=== PATIENT | male | born 1980 | race Caucasian/White ===

== ENCOUNTER 2016-09-24 21:29 | Emergency (ER) | payer OTHER ==
[~2016-09-24] VITALS: Ht 175.3 cm; Wt 140.0 kg
[2016-09-24 21:41] VITALS: BP 140/85; RESP 24; O2SAT 98
--- NOTE | 2016-09-24 22:23 | ED.REPORT ---
HPI-Sore Throat ONLY HPI/PE done Sep 24, 2016 ED Provider: Celestino Huff MD Pt is a 36 year old male presenting to the ED complaining of throat pain and swelling onset today. Associated symptoms include trouble swallowing. He denies any other symptoms at this time. Pt was seen at today and had a negative strep test. Nursing Notes Stated Complaint: SORE THROAT, SWELLING Chief Complaint: ENT & Mouth Nursing Notes Reviewed: Yes Allergies: Coded Allergies: morphine (Verified Allergy, Severe, rage, 09/24/16) Scheduled Amoxicillin/Clav K 875-125 mg (Amoxicillin/Clav K 875-125 mg) 875 Mg Tab 1 TABLET PO BID Scheduled PRN Ondansetron ODT (Ondansetron ODT) 4 Mg Tab.rapdis 4 MG PO QID PRN PRN For Nausea Prednisone (PredniSONE) 20 Mg Tablet 20 MG PO TID PRN PRN as directed General Time Seen by MD: 22:21 Chief Complaint Sore throat Hx Obtained From: Patient Arrived By: Walk-in Onset Occurred: 9 - 12 hours ago Symptom Duration: Since onset Quality: Painful Severity: Current: Moderate Severity: Maximum: Moderate Recent Healthcare: No recent hospitalization, Recent doctor visit Similar Sx Previous: No Past Medical History Past Medical History denies Past Surgical History denies Smoking History Never Smoker Social History Alcohol Use: Denies alcohol use Drug Use: THC Ambulatory Status Independent Review of Systems Constitutional: Denies: Fever Ears / Nose / Throat: Reports: Sore throat, Throat swelling Respiratory: Denies: Shortness of breath GI: Denies: Vomiting Complete sys rev & neg: except as marked. Physical Exam Initial Vital Signs Vital Signs (First) Date Time Temp Pulse Resp B/P Pulse Ox O2 Delivery O2 Flow Rate FiO2 09/24/16 21:41 36.6 118 24 140/85 98 Room Air Initial VS: Reviewed, Vital signs abnormal Head / Eyes: Atraumatic, Normocephalic, PERRL Respiratory: Breath sounds normal, Clear to auscultation, No respiratory distress Cardiovascular: Regular rate & rhythm, Heart sounds normal, Intact distal pulses Abdomen / GI: Soft, Non-tender, No guarding, No rebound, No distention Extremities: Vascular intact, Neuro intact, No swelling, No tenderness Skin: Warm, Dry, No cyanosis Neurologic: Alert, Oriented, Nonfocal Psychiatric: Mood/affect normal, Behavior normal, Normal thought content General/Constitutional: Awake, Alert, No acute distress ENT: Atraumatic, Airway patent Left peritonsillar abscess. Tonsils 3+ right, 4+ on left. Erythema with no drainage. Pt is able to swallow. Lips dry. Little swelling of the uvula. Neck: Atraumatic, Supple, No meningismus, Full range of motion, No adenopathy Interpretation & Diagnostics Lab Results Interpretation Result Diagram: 09/24/16223909/24/162239 Test 09/24/16 22:40 White Blood Count 8.7th/mm3 (3.8-10.1) Red Blood Count 4.75mil/mm3 (4.40-5.80) Hemoglobin 14.9g/dL (13.8-17.2) Hematocrit 44.0% (41.0-50.0) Mean Corpuscular Volume 92.6fL (81-100) Mean Corpuscular Hemoglobin 31.4pg (27.0-35.0) Mean Corpuscular Hemoglobin Concent 33.9% (32.0-37.0) Red Cell Distribution Width 12.8% (12.3-15.4) Platelet Count 261bil/L (150-400) Neutrophils (%) (Auto) 71.9% (40-74) Lymphocytes (%) (Auto) 18.0% (14-46) Monocytes (%) (Auto) 9.1% (4-12) Eosinophils (%) (Auto) 0.5% (0-5) Basophils (%) (Auto) 0.3% (0-3) Sodium Level 137mEq/L (134-144) Potassium Level 3.5mEq/L (3.5-5.2) Chloride Level 101mEq/L (97-108) Carbon Dioxide Level 25mmol/L (18-29) Blood Urea Nitrogen 13mg/dL (6-20) Creatinine 0.63mg/dL (0.76-1.27) Estimat Glomerular Filtration Rate 155mL/min (>59) Glucose Level 115mg/dL (60-99) Lactic Acid Level 1.7mmol/L (0.4-2.0) Calcium Level 8.9mg/dL (8.5-10.1) Magnesium Level 1.6mg/dL (1.6-2.6) Total Bilirubin 0.2mg/dL (0.0-1.2) Aspartate Amino Transf (AST/SGOT) 18U/L (0-50) Alanine Aminotransferase (ALT/SGPT) 32U/L (0-44) Alkaline Phosphatase 74U/L (25-150) Total Protein 7.4g/dL (6.4-8.4) Albumin 3.9g/dL (3.4-5.0) Lab values outside NL range: no clinical significance. Re-Eval/Medical Decision Med Decision/Clinical Course 36-year-old male with left peritonsillar abscess. He has difficulty swallowing but no airway concerns. He was given IV hydration, IV Solu-Medrol, IV Unasyn, and IV pain medication. He improved fairly dramatically, although he is still having some trouble swallowing. He is being discharged home with pain medicine , nausea medicine, and oral antibiotics. He will return here [facility] if he has increasing difficulty with swallowing or any problems with breathing. Dr. Cj Genao was consulted by phone. He approves of this management plan and will see the patient in the office this afternoon for recheck and possible drainage if needed.. Re-Evaluation/Progress #1: Time of Eval: 23:27 Patient Status: Condition improved Re-Evaluation/Progress Note: Pt pain is slightly improved to a 7/10, but pt is still having difficulty swallowing. Re-Evaluation/Progress #2: Time of Eval: 01:33 Patient Status: Condition improved Re-Evaluation/Progress Note: Pt is looking much better, symptoms greatly improved. Discussed plan for discharge. Pt understands and agrees with plan. 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 This causes swelling and difficulty swallowing. The medications we have given in the emergency room should shrink the swelling dramatically over the first 12-24 hours. Drink plenty of fluids. Oxycodone/acetaminophen 5/325, one or 2 tablets every 4-6 hours as needed for severe pain, #10 dispensed. Use this medication sparingly. Ondansetron (Zofran) 4 mg dissolved orally as needed for nausea and vomiting, #4 dispensed and #10 prescribed. Augmentin 875 mg, one pill twice daily for 10 days, #20 prescribed. Prednisone 20 mg by mouth 3 times a day for 5 days then reduce by one half tablet every day until gone, #[address] Cj Genao's office this morning for an appointment this afternoon. Return to the emergency room if he gets significant worsening. Contact me at [phone] between the hours of 9 PM and 6 AM for the next couple nights if you have any questions or concerns. Referrals: OTHER,PHYSICIAN (PCP) Cj Genao MD Attestation Portions of this note were transcribed by Leona Bains. I, Dr. Huff personally performed the history, physical exam and medical decision-making; I reviewed and confirmed the accuracy of the information in the transcribed note. Signed by: Pelon Turcios, 09/25/16 and 0150. copies to: Cj Genao MD, Howard L MD Sep 24, 2016 22:23 LEONA BAINS Sep 24, 2016 22:30
[2016-09-24] MEDS ORDERED: 0.9% Sodium Chloride 1,000 ML IV ONE (22:27)
[2016-09-24] MEDS ORDERED: HYDROmorphone 0.5 mg/0.5 mL iSecure Syringe IVPUSH PRN (22:30)
[2016-09-24] MEDS ORDERED: Piperacillin-Tazo 3.375 Gm Inj 3.375 GM in Dextrose 5% Minibag Plus 50 ML IV ONE (22:30)
[2016-09-24] MEDS ORDERED: Ondansetron 2 mg/mL 2 mL Inj IV PRN (22:30)
[2016-09-24] MEDS ORDERED: MethylprednisoLONE Sodium Succinate 62.5 mg/mL 2 mL Inj IVPUSH ONE (22:30)
[2016-09-24 22:50] LABS: BASOPHILS % (AUTO) 0.3 % (0-3); EOSINOPHILS % (AUTO) 0.5 % (0-5); MONOCYTES % (AUTO) 9.1 % (4-12); Mean Corpuscular Hemoglobin 31.4 pg (27.0-35.0); Mean Corpuscular Volume 92.6 fL (81-100); NEUTROPHILS % (AUTO) 71.9 % (40-74); Platelet Count 261 bil/L (150-400)
[2016-09-24 23:11] LABS: Magnesium 1.6 mg/dL (1.6-2.6)
[2016-09-25] MEDS ORDERED: _oxyCODONE/APAP 5-325 mg Tablet PO PRN (01:40)
[2016-09-25] MEDS ORDERED: _Ondansetron ODT 4 mg Tablet PO PRN (01:40)
[2016-09-25] MEDS ORDERED: ONDA4TAB12 PO (01:47)
[2016-09-25] MEDS ORDERED: AGM875T PO (01:47)
[2016-09-25] MEDS ORDERED: PRE20 PO (01:47)
[2016-09-25 02:27] VITALS: BP 138/89; PULSE 113; RESP 16; O2SAT 95
== END 2016-09-25 02:08 | disposition home or self-care (01) ==
LOC: SED 21:29
DX: J36 Peritonsillar abscess (principal); Z88.5 Allergy status to narcotic agent
CPT/HCPCS: 36415; 80053; 83605; 83735; 85025; 87040; 96365; 96375; 99285; J1170; J1885; J2405; J2543; J2930; J7030

== ENCOUNTER 2016-09-27 02:03 | Emergency (ER) | payer OTHER ==
[~2016-09-27] VITALS: Ht 175.3 cm; Wt 140.0 kg
[~2016-09-27 02:03] MED LIST: AGM875T PO; ONDA4TAB12 PO; PRE20 PO
[2016-09-27 02:08] VITALS: BP 146/74; RESP 13; O2SAT 96
--- NOTE | 2016-09-27 03:11 | ED.REPORT ---
HPI-Sore Throat ONLY HPI/PE done Sep 27, 2016 ED Provider: Celestino Huff MD Patient is a 36 year old male presenting to the ED c/o possible peritonsillar abscess. The pt was seen in the ED on 09/24/2016 due to a possible left peritonsillar abscess. He was given IV antibiotics and steroids and discharged on PO antibiotics. He followed up with ENT without definitive diagnosis. Since that point, the swelling of his throat and tongue has worsened and it is now becoming more difficult to breathe. Nursing Notes Stated Complaint: THROAT SWELLING TONSIL ABSCESS Chief Complaint: ENT & Mouth Nursing Notes Reviewed: Yes Allergies: Coded Allergies: morphine (Verified Allergy, Severe, rage, 09/27/16) Scheduled Amoxicillin/Clav K 875-125 mg (Amoxicillin/Clav K 875-125 mg) 875 Mg Tab 1 TABLET PO BID Scheduled PRN Ondansetron ODT (Ondansetron ODT) 4 Mg Tab.rapdis 4 MG PO QID PRN PRN For Nausea Prednisone (PredniSONE) 20 Mg Tablet 20 MG PO TID PRN PRN as directed General Time Seen by MD: 03:07 Chief Complaint Other (possible peritonsillar abscess ) Hx Obtained From: Patient Arrived By: Walk-in Onset Occurred: 3 days ago Symptom Duration: Since onset Recent Healthcare: No recent hospitalization, Recent doctor visit Similar Sx Previous: Yes Past Medical History Past Medical History none reported Past Surgical History right minicscus bilateral hernia repair Smoking History Never Smoker Social History Alcohol Use: Denies alcohol use Drug Use: THC Ambulatory Status Independent Review of Systems Review of Systems Note: throat, tongue and tonsillar swelling difficulty breathing GI: Denies: Abdominal pain, Diarrhea, Nausea, Vomiting Skin: Denies Rash Complete sys rev & neg: except as marked. Physical Exam Initial Vital Signs Vital Signs (First) Date Time Temp Pulse Resp B/P Pulse Ox O2 Delivery O2 Flow Rate FiO2 09/27/16 02:08 37.4 117 13 146/74 96 Room Air Initial VS: Reviewed, Vital signs normal General/Constitutional: Awake, Alert, No acute distress ENT: Atraumatic, Airway patent, Mucous membranes moist swelling of the uvula tonsillar erythema with patchy exudate ulceration, 4+ and touching in the middle mild tongue swelling Neck: Atraumatic, Supple, Full range of motion Head / Eyes: Atraumatic, Normocephalic, PERRL, EOMI Respiratory / Chest: Atraumatic, Breath sounds NL, Breath sounds = bilat, No respiratory distress Cardiovascular: Heart rate NL, Regular rhythm, Heart sounds NL Abdomen: Atraumatic, Soft, Non-tender Skin: Atraumatic, Color NL, No rash, Warm, Dry Neurologic: Oriented X3, Speech NL, No motor deficits, No sensory deficits Back: Atraumatic, Full range of motion Upper Extremity / MS: Atraumatic, Full range of motion Lower Extremity / Pelvis / MS: Atraumatic, Full range of motion Psychiatric: Affect NL, Mood NL Interpretation & Diagnostics Interpretation & Diagnostics: CT Neck with contrast: IMPRESSION: Tonsillitis/adenitis Lab Results Interpretation Result Diagram: 09/27/16 0245 09/27/16 0245 Test 09/27/16 02:45 09/27/16 03:20 White Blood Count 7.5th/mm3 (3.8-10.1) Red Blood Count 4.62mil/mm3 (4.40-5.80) Hemoglobin 14.5g/dL (13.8-17.2) Hematocrit 43.0% (41.0-50.0) Mean Corpuscular Volume 93.1fL (81-100) Mean Corpuscular Hemoglobin 31.4pg (27.0-35.0) Mean Corpuscular Hemoglobin Concent 33.7% (32.0-37.0) Red Cell Distribution Width 12.8% (12.3-15.4) Platelet Count 281bil/L (150-400) Neutrophils (%) (Auto) 65.8% (40-74) Lymphocytes (%) (Auto) 20.3% (14-46) Monocytes (%) (Auto) 12.5% (4-12) Eosinophils (%) (Auto) 0.3% (0-5) Basophils (%) (Auto) 0.4% (0-3) Sodium Level 139mEq/L (134-144) Potassium Level 3.8mEq/L (3.5-5.2) Chloride Level 100mEq/L (97-108) Carbon Dioxide Level 27mmol/L (18-29) Blood Urea Nitrogen 15mg/dL (6-20) Creatinine 0.59mg/dL (0.76-1.27) Estimat Glomerular Filtration Rate 167mL/min (>59) Glucose Level 103mg/dL (60-99) Calcium Level 8.6mg/dL (8.5-10.1) Magnesium Level 1.8mg/dL (1.6-2.6) Total Bilirubin 0.3mg/dL (0.0-1.2) Aspartate Amino Transf (AST/SGOT) 28U/L (0-50) Alanine Aminotransferase (ALT/SGPT) 55U/L (0-44) Alkaline Phosphatase 71U/L (25-150) Total Protein 7.1g/dL (6.4-8.4) Albumin 3.5g/dL (3.4-5.0) Hold Urine Received (Received) Re-Eval/Medical Decision Med Decision/Clinical Course 36-year-old male with peritonsillar abscess treated in the emergency room 2 days ago and then followed up by ENT. He now presents with increased swelling. CT scan shows no evidence of abscess at this time, only soft tissue swelling from tonsillopharyngitis. He has 3-4+ tonsils but his airway is not obstructed. I suspect that sleeping and mouth breathing causes him increased symptomatology. He was hydrated with 2 L of saline. He will continue his present medications and get a cool mist vaporizer. Follow up as planned with ENT. Source of Hx: Old records Re-Evaluation/Progress #1: Time of Eval: 04:46 Re-Evaluation/Progress Note: Rechecked patient. Discussed with patient results of CT scan and plan. Patient understands plan. All questions answered at this time. Re-Evaluation/Progress #2: Time of Eval: 06:09 Re-Evaluation/Progress Note: Rechecked patient. Discussed with patient results and plan to discharge. Patient agrees and understands the plan. All questions addressed at this time. Counseled Regarding: Diagnosis, Lab results, Need for follow-up, When/why to return to ED Discharge & Departure Primary Impression: Tonsillopharyngitis Disposition: Home Discharge Condition All VS Reviewed: Yes Condition: Stable Patient Instructions: Tonsillitis (ED) Additional Instructions: No definite abscess seen on CT scan. There is soft tissue swelling from nasal pharyngitis. Continue present medications. Follow up in the emergency room or with ENT as needed. Contact me at [phone] between the hours of 9 PM and 6 AM for the next couple of nights if you have any questions or concerns. Referrals: OTHER,PHYSICIAN (PCP) Scribe Attestation Portions of this note were transcribed by Margarita Perales & Viv Olvera. I, Dr. Huff personally performed the history, physical exam and medical decision-making; I reviewed and confirmed the accuracy of the information in the transcribed note. Signed by: Pelon Souza, 09/27/2016 and 0615. Celestino Huff MD Sep 27, 2016 03:11 Margarita Perales Sep 27, 2016 03:20 VIV OLVERA Sep 27, 2016 05:52
[2016-09-27] MEDS ORDERED: 0.9% Sodium Chloride 1,000 ML IV ONE ×2 (03:18→05:10)
[2016-09-27] MEDS ORDERED: Ondansetron 2 mg/mL 2 mL Inj IV PRN (03:20)
[2016-09-27 03:24] LABS: BASOPHILS % (AUTO) 0.4 % (0-3); EOSINOPHILS % (AUTO) 0.3 % (0-5); MONOCYTES % (AUTO) 12.5 % (4-12); Mean Corpuscular Hemoglobin 31.4 pg (27.0-35.0); Mean Corpuscular Volume 93.1 fL (81-100); NEUTROPHILS % (AUTO) 65.8 % (40-74); Platelet Count 281 bil/L (150-400)
[2016-09-27 03:31] VITALS: BP 130/64; PULSE 108; RESP 8; O2SAT 94
[2016-09-27] MEDS: HYDROmorphone 0.5 mg/0.5 mL iSecure Syringe IVPUSH PRN ×2 (03:31→05:48)
[2016-09-27 03:39] LABS: Magnesium 1.8 mg/dL (1.6-2.6)
[2016-09-27 04:18] VITALS: BP 122/63; PULSE 100; RESP 11; O2SAT 97
[2016-09-27 06:34] VITALS: BP 135/77; PULSE 98; RESP 20; O2SAT 98
--- NOTE | 2016-09-27 09:00 | DRSVH ---
PROCEDURE: CT NECK SOFT TISSUES WITH CONTRAST ([id number]) INDICATIONS: increased swelling TECHNIQUE: After the administration of intravenous contrast, 3.0 mm axial sections acquired from the sella to th e aortic arch. Additional oblique axial 3.0 mm sections acquired through the pharynx. 3 mm thick co storm reformats were generated. For radiation dose reduction, the following was used: automated exp osure control. COMPARISON: None. FINDINGS: Image quality: Excellent. Lymph nodes: Bilateral mildly enlarged posterior jugular chain lymph nodes, nonspecific. Vessels: Visualized vasculature appears patent. Neck spaces: There is diffuse, bilateral symmetric enlargement of the palatine and adenoid tonsils, a nd diffuse equals a prominence. No discrete abscess is seen. Glands: The parotid and submandibular glands appear normal. Thyroid gland unremarkable. Miscellaneous: Visualized brain and orbits appear normal. Lung apices appear clear. Superficial so ft tissues appear normal. Bones: No suspicious bony lesions. Visualized sinuses and mastoids appear unremarkable. IMPRESSION: Tonsillitis/pharyngitis, with associated presumed reactive lymphadenopathy as above. Please correlate clinically. Dictated by: Dennis Wolf M.D. on 09/27/2016 at 8:54 Approved by: Dennis Wolf M.D. on 09/27/2016 at 8:59
[2016-09-28] MEDS ORDERED: OXYC5TAB72 PO (16:53)
== END 2016-09-27 06:30 | disposition home or self-care (01) ==
LOC: SED 02:03
DX: J02.9 Acute pharyngitis, unspecified (principal); Z88.5 Allergy status to narcotic agent
CPT/HCPCS: 36415; 70491; 80053; 83735; 85025; 96361; 96374; 96375; 96376; 99285; J1170; J2405; J7030; Q9967

== ENCOUNTER 2016-09-28 14:33 | Observation (INO) | payer OTHER ==
[~2016-09-28] VITALS: Ht 175.3 cm; Wt 135.6 kg
[2016-09-28 15:18] VITALS: BP 141/79; PULSE 117; RESP 17
[2016-09-28] MEDS ORDERED: Dexamethasone Inj 20 MG in 0.9% Sodium Chloride 50 ML IV ONE (15:45)
[2016-09-28] MEDS ORDERED: HYDROcodone-APAP 7.5-325 mg/15 mL 15 mL Solution PO PRN (15:45)
[2016-09-28] MEDS: HYDROmorphone 1 mg/mL Inj IVPUSH PRN ×4 (16:01→23:40)
[2016-09-28 16:05] LABS: Mean Corpuscular Hemoglobin 30.9 pg (27.0-35.0); Mean Corpuscular Volume 91.2 fL (81-100)
[2016-09-28] MEDS ORDERED: OXYC5TAB72 PO (16:53)
[2016-09-28] MEDS ORDERED: 0.9% Sodium Chloride 250 ML ONE (16:56)
--- NOTE | 2016-09-28 18:40 | NUR ---
Admit Patient a direct admit into room via wheelchair. Patient able to walk in room to bathroom and to transfer to the bed. Silvio-bed ordered and in room. Patient's at bedside assisting with any questions-patient unable to speak much due to pain and inability to swallow saliva. Cup at bedside for patient to spit at. Throat pain a 9/10 on the pain scale. Room air. IV started in right hand. Patient tolerating ice chips. Most of admit completed, called admit RN. Plan on white board. Patient oriented to room, watched hospital DVD, and call light within reach.
[2016-09-28] MEDS: DEXTROSE IV SCH ×2 (18:42→22:20)
[2016-09-28] MEDS: SODIUM CHLORIDE IV SCH ×2 (18:42→22:20)
[2016-09-28] MEDS: POTASSIUM CHLORIDE IV SCH ×2 (18:42→22:20)
[2016-09-28] MEDS: Clindamycin 600 mg/50 mL D5W IV SCH (18:43)
[2016-09-28 20:30] VITALS: BP 141/92; PULSE 107; RESP 18
--- NOTE | 2016-09-28 22:14 | HP ---
[address] [address] HISTORY AND PHYSICAL PATIENT: NORMA DENNIS : 1980 MR#: [id number] ADMIT: 09/28/2016 JOB ID: [id number] HISTORY: Patient is a 36-year-old gentleman with severe tonsillitis. He was evaluated in the emergency department at [facility] apparently four days ago. Subsequently, seen by Dr. Cj Genao. He had severe symmetrical tonsillitis. CT scan showed no peritonsillar abscess. He was started on Augmentin and prednisone 60 mg per day. In spite of that, he has gotten progressively worse. He is unable to take any medication today, has not taken any fluids since midnight last night. Reportedly, initial strep screen with followup culture were negative for pathologic organisms. The patient has no prior history of similar problems. PAST MEDICAL HISTORY: Is significant for chronic anxiety. He takes no chronic medications. He has a sensitivity to MORPHINE that makes him have rage episodes. He is a non-tobacco user. PHYSICAL EXAMINATION: On exam today, blood pressure 146/88, pulse 100. Height 5 feet 9. Weight 208. BMI is 30.7. Pulse oximetry 95%. He is currently afebrile. Patient sits uncomfortably in a chair. He is not speaking, his is speaking for him. He is obese. His ears are clear. Facial skin is clear. Nose is without masses, polyps or purulence. His oropharynx shows tonsils are inflamed and are touching in the midline. They are very symmetrical. There is an adherent exudate on the medial surface of both tonsils. Nasopharynx and hypopharynx could not be visualized due to the amount of swelling. Neck examination with bilateral tender jugulodigastric nodes. Chest is without rales, rhonchi or wheezing. Cardiovascular exam: Regular rate and rhythm without murmurs, gallops or rubs. ASSESSMENT: Severe suppurative tonsillitis now with impending dehydration due to inability to swallow and also inability to take his medications. PLAN: After discussing the situation with patient and , we are electing to admit him to the hospital for IV hydration, IV dexamethasone, IV clindamycin. We will also check CBC, electrolytes and Monospot test. They understand, appreciate and agree with plan as outlined.
[2016-09-28] MEDS: Dexamethasone 4 mg/mL Inj IV SCH (23:40)
[2016-09-29] MEDS: Clindamycin 600 mg/50 mL D5W IV SCH ×3 (00:11→12:15)
[2016-09-29] MEDS: SODIUM CHLORIDE IV SCH ×2 (03:14→10:52)
[2016-09-29] MEDS: DEXTROSE IV SCH ×2 (03:14→10:52)
[2016-09-29] MEDS: POTASSIUM CHLORIDE IV SCH ×2 (03:14→10:52)
[2016-09-29] MEDS: HYDROmorphone 1 mg/mL Inj IVPUSH PRN ×2 (05:00→10:22)
[2016-09-29 06:38] VITALS: BP 137/85; PULSE 99; RESP 20
--- NOTE | 2016-09-29 07:11 | NUR ---
Secretions/Pain patient reports pain consistantly 7/10 in throat, swelling of lymphnodes and tonsils reduces swallowing ability and he spits saliva into a cup at bedside. at bedside for start of shift, patient expresses concerns and fears of , tearful. IVF infusing, dilauded IV for pain control, and IV abx. Patient is on clear liquid diet but has poor intake due to discomfort swallowing. Awaiting official plan from MD. Care continues
--- NOTE | 2016-09-29 07:55 | PROG NOTE ---
[address] [address] PROGRESS NOTE PATIENT: NORMA DENNIS : 1980 MR#: [id number] ADMIT: 09/28/2016 JOB ID: [id number] DATE: 09/29/2016 SUBJECTIVE: The patient had a quiet night. Pain has been controlled. He is taking p.o. fluids reasonably well. PHYSICAL EXAMINATION: On examination, he has been afebrile through the night. His O2 status stayed above 90%. His oropharyngeal examination shows approximately a 30% improvement in the swelling of the tonsils. There now is an oropharyngeal airway. The exudate has diminished. ASSESSMENT: Severe supportive tonsillitis, improving on current therapy. PLAN: We will continue current therapy through the rest of the day. If later today, he is doing well, taking p.o. fluids adequately and able to switch to p.o. pain medication, we will discharge him home on a dexamethasone taper and p.o. clindamycin.
[2016-09-29] MEDS: Dexamethasone 4 mg/mL Inj IV SCH ×2 (10:12→16:16)
[2016-09-29 12:45] VITALS: BP 142/89; PULSE 77; RESP 18
--- NOTE | 2016-09-29 19:28 | NUR ---
DISCHARGE Patient discharge verbal order from Dr Quinones. Instructed to follow up with Dr Quinones 7-10 day ENT clinic. Rx taper of steroids and Rx for antibiotics given to patient and he verbalized understanding. IV catheter removed intact, patient denies pain, shortness of breath, and nausea.
== END 2016-09-29 19:47 | disposition home or self-care (01) ==
LOC: OSC 14:56
PROVIDERS: ADMIT Otolaryngology Facial Plastic Surgery; ATTEND Otolaryngology Facial Plastic Surgery
DX: J03.90 Acute tonsillitis, unspecified (principal)
CPT/HCPCS: 36415; 80051; 85027; 86308; 96365; 96366; 96375; 96376; G0378; G0379; J1100; J1170; J7050

== ENCOUNTER 2016-10-07 07:31 | Emergency (ER) | payer OTHER ==
[~2016-10-07] VITALS: Ht 175.3 cm; Wt 135.4 kg
[~2016-10-07 07:31] MED LIST changes: -ONDA4TAB12 PO; +OXYC5TAB72 PO
[2016-10-07 07:36] VITALS: BP 137/86; PULSE 101; RESP 16; O2SAT 97
--- NOTE | 2016-10-07 07:58 | ED.REPORT ---
HPI- Male Date of Service Oct 07, 2016 ED Provider: Toño Marino MD The patient is a 36 year old male with history of recurrent UTIs and neurogenic bladder, bladder spasms who presents to the emergency department complaining of severe, burning urethral pain, bladder spasms that began 4-5 hours ago. His pain has waxed and waned since onset ranging from an 8/10 to a 12/10. He has felt the urge to urinate but has not been able to urinate. His symptoms are not exacerbated or relieved by anything. He has not had this severity of pain in the past. He denies penile pain, penile discharge or testicular swelling. He denies history of sexually transmitted diseases. He was admitted 1 week ago for tonsillitis Nursing Notes Stated Complaint: TESTICULAR ISSUES Chief Complaint: General Complaint Nursing Notes Reviewed: Yes Allergies: Coded Allergies: morphine (Verified Allergy, Severe, rage, 09/28/16) Scheduled Amoxicillin/Clav K 875-125 mg (Amoxicillin/Clav K 875-125 mg) 875 Mg Tab 1 TABLET PO BID Oxybutynin Chloride (Oxybutynin Chloride) 5 Mg Tablet 5 MG PO TID Scheduled PRN Prednisone (PredniSONE) 20 Mg Tablet 20 MG PO TID PRN PRN as directed oxyCODONE (oxyCODONE) 5 Mg Tablet 5-10 MG PO q4-6 hours PRN PRN For Pain General Time Seen by MD: 07:44 Chief Complaint Testicle painful right, Testicle painful left, Unable to urinate, Other ( urethral pain) Hx Obtained From: Patient Arrived By: Walk-in Onset Occurred: 5 - 8 hours ago Symptom Duration: Since onset Location: : Scrotum Quality: Painful Severity: Current: Severe Severity: Maximum: Severe Recent Healthcare: Recent doctor visit, Recent hospitalization Similar Sx Previous: No Past Medical History Past Medical History Hx of UTI's Neurogenic bladder as a child requiring self catheterizations Past Surgical History Right minicscus Bilateral hernia repair Family History Noncontributory Smoking History Never Smoker Social History Alcohol Use: Denies alcohol use Drug Use: THC Other Social History: Good social support, Local resident Ambulatory Status Independent Review of Systems Review of Systems Note: +urethral pain Male: Reports Testicular pain, Reports Urinary urgency (increased), Reports Urination decreased (unable to urinate), Denies Penile discharge, Denies Penile lesion, Denies Scrotal swelling, Denies Testicular swelling Complete sys rev & neg: except as marked. Physical Exam Initial Vital Signs Vital Signs (First) Date Time Temp Pulse Resp B/P Pulse Ox O2 Delivery O2 Flow Rate FiO2 10/07/16 07:36 36.7 101 16 137/86 97 Room Air Initial VS: Reviewed Head / Eyes: Atraumatic, Normocephalic, PERRL ENT: Mucous membranes moist, Conjunctiva normal, No scleral icterus Neck: Supple, Non-tender, Full range of motion Respiratory: Breath sounds normal, Clear to auscultation, No respiratory distress Cardiovascular: Regular rate & rhythm, Heart sounds normal, Intact distal pulses Abdomen / GI: Soft, Non-tender, No guarding, No rebound, No distention Extremities: Vascular intact, Neuro intact, No swelling, No tenderness Skin: Warm, Dry, No cyanosis Neurologic: Alert, Oriented, Nonfocal Psychiatric: Mood/affect normal, Behavior normal, Normal thought content Male Genitourinary: Atraumatic, Inspection NL, Penis NL, No penile discharge, Testes NL, No lesions or rash Penis is circumcised. General/Constitutional: Awake, Alert, Cooperative Appearance / Presentation: Positive: Uncomfortable Interpretation & Diagnostics Lab Results Interpretation Test 10/07/16 08:00 Urine Color Williamson (YELLOW) Urine Appearance Clear (CLEAR,HAZY) Urine pH (5.0-8.0) Urine Specific [place] (1.003-1.035) Urine Protein mg/dL (NEG,TRACE) Urine Glucose (UA) mg/dL (NEGATIVE) Urine Ketones mg/dL (NEGATIVE) Urine Occult Blood (NEGATIVE) Urine Nitrite (NEGATIVE) Urine Bilirubin (NEGATIVE) Urine Urobilinogen mg/dL (NORMAL) Urine Leukocyte Esterase (NEGATIVE) Urine RBC 0-2/hpf (0-2) Urine WBC 0-5/hpf (0-5) Urine Epithelial Cells Occasional/hpf (NONE-MOD) Urine Crystals None seen (NONE SEEN) Urine Bacteria None/hpf (NONE-FEW) Urine Hyaline Casts None/lpf (NONE) Urine Granular Casts None seen (NONE SEEN) Urine Waxy Casts None seen (NONE SEEN) Urine Red Blood Cell Casts None seen (NONE SEEN) Urine White Blood Cell Casts None seen (NONE SEEN) Urine Mucus Present (None Seen) Urine Trichomonas None seen (NONE SEEN) Urine Yeast None (NONE SEEN) Urinalysis Comment Color interference Urine Culture Reflexed Not indicated Re-Eval/Medical Decision Med Decision/Clinical Course The patient is a 36 year old male with history of recurrent UTIs and neurogenic bladder, bladder spasms who presents to the emergency department complaining of severe, burning urethral pain, bladder spasms that began 4-5 hours ago. His pain has waxed and waned since onset ranging from an 8/10 to a 12/10. He has felt the urge to urinate but has not been able to urinate. His symptoms are not exacerbated or relieved by anything. He has not had this severity of pain in the past. He denies penile pain, penile discharge or testicular swelling. He denies history of sexually transmitted diseases. Here in the emergency department patient appears uncomfortable with otherwise afebrile, hemodynamically stable and in no apparent distress. His abdominal examination is benign. Examination of his penis and testicles is normal. He has normal testicular lie, no testicular swelling/tenderness, no tenderness about the epididymitis, no scrotal erythema and normal cremasteric reflex. Bladder scan: 225 mL UA: no signs of infection Treated with oxycodone and oxybutynin. Thereafter patient reported complete symptom resolution. At this time, there is no evidence of urinary tract infection. There is no evidence of urethritis or abnormal urethral discharge. There is no evidence of testicular torsion, epididymitis or orchitis. There is no evidence of abscess or cellulitis. There is no evidence that he is retaining urine. When a Harman catheter was placed to obtain a urinalysis there was only 100 mL in the bladder. He is spontaneously voiding. I suspect these x-rays a bladder spasm related to his history of neurogenic bladder. Discharged home with oxybutynin this helped him quite a bit. He has been referred to urology. Prior to discharge follow-up and return precautions were reviewed in detail with the patient who verbalized understanding and agreement with the plan. The patient was discharged in stable condition. Source of Hx: Old records Re-Evaluation/Progress : Time of Eval: 09:21 Re-Evaluation/Progress Note: Rechecked the patient. Discussed results, diagnosis, and plan for discharge. All questions were addressed. Counseled Regarding: Diagnosis, Lab results, Need for follow-up, When/why to return to ED Discharge & Departure Impression: Primary Impression: Bladder spasms Additional Impressions: Dysuria Neurogenic bladder disorder History of UTI Disposition: Home Discharge Condition All VS Reviewed: Yes Condition: Stable Additional Instructions: Thank you for entrusting us with your care today. I believe your symptoms are related to bladder spasms. There is no sign of an infection in your urine at this time. Use the Oxybutynin as prescribed. You should also followup with a urologist. We have given a referral to Dr. Olivia. Return to the emergency department if you develop worsening pain, fever, chills , inability to void, testicular swelling, penile discharge, or any other new or concerning symptoms. Referrals: OTHER,PHYSICIAN (PCP) Shay Olivia MD Attestation Portions of this note were transcribed by China Jimenez. I, Dr. Marino personally performed the history, physical exam and medical decision-making; I reviewed and confirmed the accuracy of the information in the transcribed note. Signed by: Pelon Howard, 10/07/2016 at 1000. copies to: Shay Olivia MD, Beck O MD Oct 07, 2016 07:58 China Jimenez Oct 07, 2016 08:01
[2016-10-07 08:48] LABS: APPEARANCE,URINE CLEAR (CLEAR,HAZY); COLOR,URINE ORANGE (YELLOW)
[2016-10-07] MEDS ORDERED: OXYB5TAB10 PO (09:19)
[2016-10-07 10:29] VITALS: BP 114/75; PULSE 82; RESP 17; O2SAT 98
== END 2016-10-07 10:30 | disposition home or self-care (01) ==
LOC: SED 07:31
DX: N32.89 Other specified disorders of bladder (principal); R30.0 Dysuria; N31.9 Neuromuscular dysfunction of bladder, unspecified; F12.10 Cannabis abuse, uncomplicated; Z87.440 Personal history of urinary (tract) infections; Z79.52 Long term (current) use of systemic steroids; Z88.5 Allergy status to narcotic agent